=== PATIENT | male | born 1990 | race African-American/Black ===

== ENCOUNTER 2017-12-31 23:02 | Emergency (ER) | payer OTHER ==
[~2017-12-31] VITALS: Ht 165.1 cm; Wt 61.2 kg
[~2017-12-31 23:02] MED LIST: AMBIEN (MONOGRAP5 MG PO; BACTRIM DS 8001 TAB PO; BACTROBAN15 GM TOP; BENZTROPINE ME0.5 MG PO; CLINDAMYCIN HY300 MG PO; DOXYCYCLINE MO100 MG PO; FLEXERIL10 MG PO; FOLIC ACID 1 MG PO; HYDROXYZINE PAM50 MG PO; IBUPROFEN800 MG PO; KEFLEX500 MG PO; MINIPRESS1 MG PO; OLANZAPINE5 M2 PO; PEPCID20 M1 PO; PRAZOSIN HCL1 MG PO; PRILOSEC20 MG PO; PROTONIX20 M1 PO; RISPERIDONE0.5 MG PO; SEROQUEL50 MG PO; SERTRALINE HYDR50 MG PO; TRAMADOL50 MG PO; TRAZODONE HCL50 M1 PO; TYLENOL500 MG PO; Theragran Vitamins PO; VITAMIN B150 MG PO; ZOFRAN ODT4 M1 SL
[2017-12-31 23:46] LABS: ABSOLUTE BASOPHIL COUNT 0 /CUMM (0.0-0.2); ABSOLUTE EOSINOPHIL COUNT 0 /CUMM (0.0-0.7); ABSOLUTE GRANULOCYTE CT 6.7 /CUMM (1.4-6.5); ABSOLUTE LYMPH COUNT 1.6 /CUMM (1.2-3.4); ABSOLUTE MONOCYTE COUNT 0.3 /CUMM (0.10-0.60); BASOPHIL % 0.1 % (0.0-2.0); EOSINOPHIL % 0.3 % (0-5); GRANULOCYTE % 77.9 % (42.2-75.2); HEMATOCRIT 44.3 % (42-52); MEAN CORPUSCULAR HGB 30.3 PG (27.0-31.0); MEAN CORPUSCULAR HGB CONC 32.7 G/DL (33.0-37.0); MEAN CORPUSCULAR VOLUME 92.6 FL (80.0-94.0); PLATELET COUNT 265 /CUMM (130-400); RED BLOOD CELL CT 4.78 /CUMM (4.70-6.10); WHITE BLOOD CELL COUNT 8.7 /CUMM (4.8-10.8)
--- NOTE | 2018-01-01 00:15 | ED PSYCHIATRIC COMPLAINT ---
History of Present Illness General Chief Complaint: ETOH/Drug Related Complaint Stated Complaint: BIBA FOR ETOH, +SI Source: patient, EMS Exam Limitations: intoxication Vital Signs & Intake/Output Vital Signs & Intake/Output Vital Signs Date Time Temp Pulse Resp B/P B/P Pulse O2 O2 Flow FiO2 Mean Ox Delivery Rate 01/01 0928 98.8 116 18 90/70 98 01/01 0628 65 18 107/55 97 Room Air 01/01 0605 97 Room Air 01/01 0444 97.9 71 20 106/66 98 Room Air 12/31 2320 97.4 73 18 130/72 98 Room Air ED Intake and Output 01/01 0000 12/31 1200 Intake Total Output Total Balance Patient 135 lb Weight Weight Estimated Measurement Method Allergies Coded Allergies: sulfamethoxazole (From Bactrim) (RASH ON BODY/GENITALS 08/06/17) trimethoprim (From Bactrim) (RASH ON BODY/GENITALS 08/06/17) Reconcile Medications Olanzapine 5 MG TABLET 5 MG PO AT BEDTIME paranoia/thought disorder Prazosin Hydrochloride (Minipress) 1 MG CAPSULE 3 MG PO AT BEDTIME nightmares Trazodone HCl 50 MG TABLET 50 MG PO AT BEDTIME PRN SLEEP Triage Note: PT BIBA FROM THE STREET C/O ETOH +SI COMMENTS PER PD. PT IS PAPERED (ORIGINAL IN LOCKED BOX AND COPY IN PAPER CHART). PT WAS FOUND ON STREET +ETOH, PD WAS GIVING PT A RIDE HOME AND PT MADE +SI COMMENTS STATING "JUST TAKE YOUR GUN AND SHOOT ME, IM NOT SCARED". PT CALM AND COOPERATIVE ON ARRIVAL, WANDED AND CHANGED. PTS BSG ON ARRIVAL 83. PTS VSS. Triage Nurses Notes Reviewed? yes HPI: Patient presents for evaluation of alcohol intoxication and suicide ideation. The patient presents at the request of the police for alcohol intoxication and suicide comments such as "I wish you just shoot me. I am not scared of ". (Geni BUCKLEY,Phillip Daniels) Past History Travel History Traveled to [place] past 21 day No Medical History Any Pertinent Medical History? see below for history Neurological: NONE EENT: NONE Cardiovascular: NONE Respiratory: NONE Gastrointestinal: NONE Hepatic: NONE Renal: NONE Musculoskeletal: NONE Psychiatric: anxiety, depression, psychosis, substance abuse, COMBATIVE Endocrine: patient was hypoglycemic during an admission in June 2014. It was attributed to his alcohol use at the time. Blood Disorders: NONE Cancer(s): NONE STONE SANDBLASTER/Reproductive: NONE Other Medical Hx: recurrent scalp abscesses History of MRSA: No History of VRE: No History of CDIFF: No Surgical History Surgical History: none (I & D scalp abscesses past), non-contributory, recurrent drainage of scalp abscesses Psychosocial History Who do you live with Mother Services at Home None What is your primary language Polish Tobacco Use: Refused to answer ETOH Use: alcoholic Family History Family History, If Any: FATHER (FATHER WITH DM). BROTHER (BROTHER WITH ASTHMA). Hx Contributory? No (Geni BUCKLEY,Phillip Daniels) Review of Systems Review of Systems Constitutional: Reports: no symptoms. EENTM: Reports: no symptoms. Respiratory: Reports: no symptoms. Cardiovascular: Reports: no symptoms. GI: Reports: no symptoms. Genitourinary: Reports: no symptoms. Musculoskeletal: Reports: no symptoms. Skin: Reports: no symptoms. Neurological/Psychological: Reports: see HPI. Hematologic/Endocrine: Reports: no symptoms. Immunologic/Allergic: Reports: no symptoms. 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 with scattered areas of blood oozing Eyes: Normal inspection, no nystagmus, EOMI Ears: Normal inspection Nose: Normal inspection Throat: Moist mucosa Neck: Supple, no goiter Heart: Regular rate and rhythm, no murmurs rubs or gallops Lungs: Clear to auscultation bilaterally with good air entry Abdomen: Soft nontender nondistended, normal bowel sounds Chest: Nontender Extremities: Normal range of motion grossly, no tremors present, no cyanosis clubbing or edema of the upper extremities Neurologic: cranial nerves II through XII grossly intact, speech clear, gait normal Psychiatric: No apparent delusions or hallucinations, no pressured speech or thought blocking SAD PERSONS Done? DEFERRED TO CRISIS (Phillip Arechiga MD) Progress Differential Diagnosis: drug intoxication, drug overdose, electrolyte abnormality, hypoglycemia Plan of Care: Orders Procedure Date/time Status Regular Diet 01/01 B Active Continuous Observation Monitor 01/01 14 Active ED CRISIS PSYCH CONSULT 05/19 0014 Active URINE DRUG SCREEN FOR ER ONLY 01/01 2324 Complete ETHANOL 01/01 2324 Complete COMPREHENSIVE METABOLIC PANEL 01/01 2324 Complete CBC WITHOUT DIFFERENTIAL 01/01 2324 Complete Laboratory Tests 01/01/18 0932: Urine Opiates Screen < 100, Methadone Screen < 40, Barbiturate Screen < 60, Ur Phencyclidine Scrn < 6.00, Amphetamines Screen < 100, U Benzodiazepines Scrn < 85, Urine Cocaine Screen < 50, Urine Cannabis Screen < 5.00 12/31/17 2336: Anion Gap 16, Estimated GFR > 60, BUN/Creatinine Ratio 13.8, Glucose 83, Calcium 9.3, Total Bilirubin 0.6, AST 30, ALT 24, Alkaline Phosphatase 58, Total Protein 7.3, Albumin 4.5, Globulin 2.8, Albumin/Globulin Ratio 1.6, CBC w Diff NO MAN DIFF REQ, RBC 4.78, MCV 92.6, MCH 30.3, MCHC 32.7 L, RDW 15.0 H, MPV 8.0, Gran % 77.9 H, Lymphocytes % 18.5 L, Monocytes % 3.2, Eosinophils % 0.3, Basophils % 0.1, Absolute Granulocytes 6.7 H, Absolute Lymphocytes 1.6, Absolute Monocytes 0.3, Absolute Eosinophils 0, Absolute Basophils 0, Serum Alcohol 223.0 Comments: I have dressed the patient's multiple areas of bruising on his scalp secondary to a 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 (Geni BUCKLEY,Phillip Daniels) Comments: Patient is been seen and evaluated by Diego anabell. Patient is stable for discharge at this time. Patient is not a danger to himself or others at this time. (Zachariah BUCLKEY,Delfino Coates) Departure Departure Condition: Stable Referrals: Patient Has No Primary Care Dr (PCP/Family) Departure Forms: Customer Survey General Discharge Information (Geni BUCKLEY,Phillip Daniels) Departure Disposition: HOME OR SELF CARE Clinical Impression Primary Impression: Alcohol intoxication Secondary Impressions: Furunculosis of head Additional Instructions: FOLLOW UP PER RECOMMENDATIONS OF THE HOSPITAL ATTENDANT CALL 211 OR RETURN TO THE ER [facility]ME[facility] FOR ANY THOUGHTS OF HARMINGYURSELF, ANYONE ELSE OR FOR ANY CONCERNS (Zachariah BUCKLEY,Delfino Coates)
--- NOTE | 2018-01-01 10:21 | ED PSYCH CRISIS CONSULTATION ---
Crisis Consult Basic Assessment Date of Consult: 01/01/18 Responsible Person/Accompanied By: Brought in by ambulance on a police PEER Insurance Authorization: Insurance #1: Insurance name: DONY HATCH Policy number: [id number] ED Provider: Patient's ED Provider: Geni BUCKLEY,Phillip Daniels Primary Care Physician: Patient's PCP: Patient Has No Primary Care Dr Current Psychiatrist: Derrell? Chief Complaint: ETOH/Drug Related Complaint Patient's Quote: "I remember a little bit...I was intoxicated. " Present Illness: Patient is a 27 year old -[place] male who presents to [facility] intoxicated with a blood alcohol level of ~223 at around midnight last night. Patient's urine toxciology screening administered at ~9 am this morning is negative for all substances. The police emergency examination request indicates concern of suicidal thoughts and states he was "observed stumbling while walking...unable to stand unassisted.....began crying for no reason...twice told office "I wish you just shoot me. I'm not scared of ."" This signwriter met with patient in room. Patient was alert, oriented, calm and cooperative. A [place] suicide severity rating scale (C.-S.S.R.S.) was completed. Patient denies suicidal behavior or suicidal ideation in the past week. Patient also denies lifetime suicidality. Patient asserts that his suicidal statement last night was made because "I was intoxicated." Patient also states "I was angry." Patient clarified that he did state he was not scared of and continues to not be scared of . However, he asserts he does not have any wish to or no reason to live. 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 Patient has in the past year had an inpatient psychiatric admission at [facility], completed intensive outpatient at [facility] and recently started treatment at [facility]. Patient denies being prescribed any psychotropic medication. Patient has historical diagnoses of major depressive disorder with psychotic features and substance use disorders. Patient denies any medical concerns and was medically cleared with no acute findings by Dr. Phillip Arechiga. Patient does have an abcess on his scale which is being treated. Patient lives with his mother in a home in [place], [place]. Patient is but lives separate from hiw . They speak frequently however. Patient's did not specify any concerns regarding patient. She asserts "He's been doing good. We talk on a regularly basis. He's been working." Patient's mother states she has no concerns regarding patient and reports that "he hasnt been drinking." Mother does indicate some occasional relapses. Mother indicates patient is moving out of her home. Mother confirms patient is in treatment but she asserts it has not prevented the relapses. Patient admits to drinking alcohol occassionally in the past month. Patient reports he does not recall all the events yesterday and initially inidcated drinking ~ 3 beers. This signwriter advised on high BAL and patient recalled that he may have had "multiple." Patient does admit "I think it's a problem." Patient identified "try to not to drink" and "keep myself busy" as strategies he can employ to prevent relapse. Patient reports he is motivated to continue treatment at [facility]. Patient denies any experience of auditory or visual hallucinations recently. There is no evident delusions, paranoia, or other psychoses. Patient asserts he would like to be discharged so he can go to work today at Wednesday at 2:00 p.m. Patient denies any significant mental health concerns and asserts he feels safe to be discharged. Patient denies suicidal ideation. He asserts he will attempt to maintain sobriety. Patient's Address: [address] [place] [address] Who Do You Live With? Mother Family/Informants Interviewed: Mother Diane Villanueva Woo Villanueva Allergies - Coded Allergies: sulfamethoxazole (From Bactrim) (RASH ON BODY/GENITALS 08/06/17) trimethoprim (From Bactrim) (RASH ON BODY/GENITALS 08/06/17) Current Medications - Scheduled Medications Olanzapine 5 MG TABLET 5 MG PO AT BEDTIME paranoia/thought disorder #14 Prescribed by Quintin Chino MD on 08/12/17 Prazosin Hydrochloride (Minipress) 1 MG CAPSULE 3 MG PO AT BEDTIME nightmares #14 TAB Prescribed by Quintin Chino MD on 08/12/17 Scheduled PRN Medications Trazodone HCl 50 MG TABLET 50 MG PO AT BEDTIME PRN SLEEP #14 TAB Prescribed by Quintin Chino MD on 08/12/17 Laboratory Results: Laboratory Tests 01/01/18 0932: Urine Opiates Screen < 100, Methadone Screen < 40, Barbiturate Screen < 60, Ur Phencyclidine Scrn < 6.00, Amphetamines Screen < 100, U Benzodiazepines Scrn < 85, Urine Cocaine Screen < 50, Urine Cannabis Screen < 5.00 12/31/17 2336: Anion Gap 16, Estimated GFR > 60, BUN/Creatinine Ratio 13.8, Glucose 83, Calcium 9.3, Total Bilirubin 0.6, AST 30, ALT 24, Alkaline Phosphatase 58, Total Protein 7.3, Albumin 4.5, Globulin 2.8, Albumin/Globulin Ratio 1.6, CBC w Diff NO MAN DIFF REQ, RBC 4.78, MCV 92.6, MCH 30.3, MCHC 32.7 L, RDW 15.0 H, MPV 8.0, Gran % 77.9 H, Lymphocytes % 18.5 L, Monocytes % 3.2, Eosinophils % 0.3, Basophils % 0.1, Absolute Granulocytes 6.7 H, Absolute Lymphocytes 1.6, Absolute Monocytes 0.3, Absolute Eosinophils 0, Absolute Basophils 0, Serum Alcohol 223.0 Past History Past Medical History Neurological: NONE EENT: NONE Cardiovascular: NONE Respiratory: NONE Gastrointestinal: NONE Hepatic: NONE Renal: NONE Musculoskeletal: NONE Psychiatric: anxiety, depression, psychosis, substance abuse, COMBATIVE Endocrine: patient was hypoglycemic during an admission in June 2014. It was attributed to his alcohol use at the time. Blood Disorders: NONE Cancer(s): NONE HEEL STAINER/Reproductive: NONE Past Surgical History Surgical History: non-contributory, 1 recurrent drainage of scalp abscesses (I & D scalp abscesses past) Psychosocial History Strengths/Capabilities: Patient recently completed an [facility] level of care Physical Limitations (Interventions): none identified Psychiatric Treatment History Psych Treatment Psychiatric Treatment Yes Inpatient Treatment Yes Outpatient Treatment Yes Location of Treatment [facility] outpatient, inpatient Reason for Treatment Major depressive disorder Substance use disorder Dates of Treatment 2017 to present Response to Treatment Positive Diagnosis by History: Major Depression with psychosis Substance Use/Abuse History Drug Use/Abuse Substances Used/Abused Yes Substance Used/Abused Alcohol First Use Patient did not specify Last Used Yesterday How much used/taken Yesterday - several beers How often Patient only reports occasional use around 1x per week For how long Patient has relapsed in the past few months Route of use Ingestion Substance Abuse Treatment Substance Abuse Treatment Past Substance Abuse [place] Yes Inpatient Treatment Yes Outpatient Treatment Yes Location of Treatment [facility]. Reason for Treatment Alcohol use disorder Cannabis Use disorder polysubstance use Dates of Treatment Longstanding treatment Response to Treatment Varied Comments: - Current Mental Status Mental Status Orientation: Person, Place, Situation Affect: Appropriate Speech: WNL Neuro-vegetative: WNL Appearance Appearance- Dress/Hygiene: Patient dressed in hospital attire. No remarkable features observed other than a bandage on patient's scalp (for abcess which has been chronic) Behaviors Thought Process: WNL Thought Content: WNL Memory: WNL Insight: Fair SI/HI Risk Assessment Past Suicidal Ideation/Attempts No (Patient denies) Current Suicidal Ideation/Att No (Patient denies SI/intent/plan.) Past Homicidal Ideation/Att: No Current Homicidal Ideation/Attempts No Degree of Intent: None Risk Factors: substance abuse, male Lethality Ratin (mild) PTSD Checklist PTSD Done? patient declined ED Management Sitter: Yes Restraints: No (Patient is calm & cooperative.) DSM5/PS Stressors/Medical Prob Diagnosis' (DSM 5, Stressors, Medical): F10.20 Alcohol use disorder, Moderate Rule - out for : F33.3 Major depressive disorder, Recurrent episode, With psychotic features Current GAF: 50 Departure Disposition Psych Medical Clearance Date: 01/01/18 Medically Cleared at: 929 Time Started: 929 Time Ended: 1029 Psychiatrist Consulted: Dr. Ross Jones M.D., Ph.D. Date Disposition Established: 01/01/18 Time Disposition Established: 1029 Plan for Disposition - Modality: Outpatient Facility: [facility] Follow-up Appt Date: 01/12/18 Rationale for Disposition: Crisis evaluation presented to on-call psychiatrist Dr. Jones. Patient does not present with any high risk - factors which would warrant further hold in the emergency department or consideration of an inpatient psychiatric admission. Patient denies current suicidal ideation, intent or plan. Patient's family does not express any concern regarding patient being discharged. Patient is engaged in treatment at [facility] per his report. Patient does have on-going concerns of alcohol use disorder which will be addressed in outpatient group therapy at [facility]. Referrals Patient Has No Primary Care Dr (PCP/Family)
[2018-01-01 10:38] VITALS: BP 114/57
== END 2018-01-01 10:42 ==
LOC: ERH 23:02
PROVIDERS: Emergency Medicine
DX: L02.828 Furuncle of other sites (principal); F10.129 Alcohol abuse with intoxication, unspecified
CPT/HCPCS: 80307; G0463; G0480